=== PATIENT | female | born 1980 | race Caucasian/White ===

== ENCOUNTER 2022-06-24 11:26 | Emergency (ER) | payer MEDICAID, SELFPAY ==
--- NOTE | ~2022-06-24 | XR_ITS ---
EXAMINATION: XR CHEST CLINICAL INFORMATION: Cough, fever and wheezing. Rule out pneumonia. COMPARISON: None TECHNIQUE: 2 views of the chest were obtained. FINDINGS: No significant abnormality is noted involving the heart, lungs, mediastinum, bony thorax or soft tissues. XR/XR chest 2V IMPRESSION: Unremarkable chest examination.
[2022-06-24 11:58] VITALS: BP 143/97; PULSE 113; RESP 19; TEMP 36.6; O2SAT 97; BMI 38.7
[2022-06-24 12:42] LABS: IDNOW Serial# 9DB6401D; Influenza A Positive (Negative); Influenza B2 Negative (Negative)
[2022-06-24 12:49] LABS: COVID-19 Test Negative (Negative)
--- NOTE | 2022-06-24 14:10 | ED_ITS ---
HPI - General Adult General Chief complaint: Upper Respiratory Symptoms Stated complaint: not feeling well Time Seen by Provider: 06/24/22 13:26 Source: patient Mode of arrival: ambulatory Limitations: no limitations History of Present Illness HPI narrative: 41-year-old female presents to ED for 4 days of headache, cough, and fever. She states herself, daughter, and son also having similar symptoms. Patient denies any shortness of breath, chest pain, leg swelling, calf pain, coughing up blood. Related Data Allergies Allergy/AdvReac Type Severity Reaction Status Date / Time aspirin [ASA] Allergy Unknown Verified 06/24/22 12:03 tramadol Allergy Itching Verified 06/24/22 12:03 Review of Systems Review of Systems: Coughing, fever, and headache Yes all other systems are reviewed and are negative [facility] Social History Social History Advance Directives: No Advance Directives Information Provided: No Physical Exam ED Vital Signs: Vital Signs - 24 hr 06/24/22 11:58 Temperature 98 F Pulse Rate 113 H Respiratory Rate 19 Blood Pressure 143/97 H Pulse Oximetry 97 Oxygen Delivery Method Room Air BMI result Body Mass Index 38.7 Const General: cooperative, healthy appearing, comfortable, no acute distress, well developed, alert and awake Orientation/consciousness: oriented to place, oriented to time and patient oriented x3 HENMT Head: Yes normal to inspection, Yes No palpable skull fracture present, Yes normocephalic, Yes atraumatic and No abrasion Eyes General: appearance normal, both eyes and all related structures Neck Neck: Yes normal visual inspection, Yes full ROM, Yes no lymphadenopathy, Yes no meningeal signs, Yes trachea midline, Yes supple, No anterior neck swelling and No tender Chest Chest palpation & inspection: normal inspection of the chest and normal palpation of entire chest wall Resp Effort & Inspection: normal respiratory effort and able to speak in complete sentences Auscultation: clear to auscultation bilaterally Cardio Jugular venous distension: no JVD Heart sounds: S1 normal heart sound present and S2 normal heart sound present GI Inspection: Yes normal to inspection and No abdominal wall ecchymosis Palpation (GI): Soft to palpation, not firm, nontender, no guarding and not rigid General: No CVA tenderness and Yes no CVA tenderness Back/Spine/Pelvis Back: no CVA tenderness, No CVA tenderness and No back tenderness Skin General skin exam: no rashes or lesions noted and elasticity normal Neuro General: oriented to place, oriented to time, patient oriented x3, gait normal and no meningeal signs Cranial nerves: Yes CN's II-XII intact bilaterally Extrem Other: Lower extremity negative for swelling, pitting edema, calf tenderness General: Yes normal to inspection and Yes full ROM Psych Appearance: grossly normal, well kempt and not disheveled Course Course Course Narrative: Chest x-ray COVID influenza ordered Reevaluation(s) Reevaluation #1: Chest x-ray normal. Patient positive for influenza Time: 14:13 Medical Decision Making [facility] Narrative Medical decision making narrative: SARs Lab Data Labs: Lab Results 06/24/22 06/24/22 Range/Units 12:06 12:06 COVID-19 (JAMIR) Negative (Negative) COVID-19 Clin Com See Note Influenza Type A (PAMELA) Positive A (Negative) Influenza Type B (PAMELA) Negative (Negative) Influenza A & B Note See Note Discharge Plan Discharge Clinical Impression: Influenza A Patient Disposition: Home, Self-Care Instructions: Influenza (ED) Additional Instructions: Antolin positivo para influenza A. Debido a que tuvo s?ntomas suhail m?s de 48 horas, no calific? para Tamiflu. Recomendar hidrataci?n oral, descanso, Tylenol/Motrin para el control de la fiebre/dolor. Regrese a la kem de urgencias de inmediato por cualquier dolor en el pecho, dificultad para respirar, tos con janelle, hinchaz?n de las piernas, debilidad, fiebre intratable, escalofr?os, cualquier otro s?ntoma preocupante. Por favor, juancho un seguimiento con el proveedor de atenci?n primaria. Stand Alone Forms: Work/School Release Interventions: ED Discharge Assessment Last Done: 06/24/22 15:14 Discharge Date/Time: 06/24/22 14:20 Print Language: Citizen Of [place]
--- NOTE | 2022-06-24 14:55 | ED.URI ---
HPI - URI/Sore Throat General Chief Complaint: Upper Respiratory Symptoms Stated Complaint: not feeling well Time Seen by Provider: 06/24/22 13:26 Source: patient Mode of arrival: ambulatory Limitations: no limitations Related Data Allergies Allergy/AdvReac Type Severity Reaction Status Date / Time aspirin [ASA] Allergy Unknown Verified 06/24/22 12:03 tramadol Allergy Itching Verified 06/24/22 12:03 [facility] Social History Social History Advance Directives: No Advance Directives Information Provided: No Physical Exam Vital Signs: Vital Signs: Last Vital Signs Temp 98 F 06/24/22 11:58 Pulse 113 H 06/24/22 11:58 Resp 19 06/24/22 11:58 BP 143/97 H 06/24/22 11:58 Pulse Ox 97 06/24/22 11:58 O2 Del Method 06/24/22 11:58 BMI result Body Mass Index 38.7 Course Course Course Narrative: RME: 41-year-old female who presented to emergency department for evaluation of fever, headache and cough x4 days. The patient states her cough is productive, she is also having chest pain and shortness of breath. Vital signs revealed an elevated blood pressure 149/70, elevated pulse of 113. Patient is awake alert does not appear to be in distress, lungs were clear to auscultation, breath sounds symmetric bilaterally, heart regular rate rhythm, abdomen soft nontender extremities unremarkable neurologic exam nonfocal. I did order a COVID-19, influenza, and chest x-ray MDM - URI/Sore Throat Lab Data Labs: Lab Results 06/24/22 06/24/22 Range/Units 12:06 12:06 COVID-19 (JAMIR) Negative (Negative) COVID-19 Clin Com See Note Influenza Type A (PAMELA) Positive A (Negative) Influenza Type B (PAMELA) Negative (Negative) Influenza A & B Note See Note Discharge Plan Discharge Clinical Impression: Influenza A Patient Disposition: Home, Self-Care Instructions: Influenza (ED) Additional Instructions: Antolin positivo para influenza A. Debido a que tuvo s?ntomas suhail m?s de 48 horas, no calific? para Tamiflu. Recomendar hidrataci?n oral, descanso, Tylenol/Motrin para el control de la fiebre/dolor. Regrese a la kem de urgencias de inmediato por cualquier dolor en el pecho, dificultad para respirar, tos con janelle, hinchaz?n de las piernas, debilidad, fiebre intratable, escalofr?os, cualquier otro s?ntoma preocupante. Por favor, juancho un seguimiento con el proveedor de atenci?n primaria. Stand Alone Forms: Work/School Release Print Language: [place]
== END 2022-06-24 14:20 | disposition home or self-care (01) ==
PROVIDERS: Emergency Medicine Emergency Medical Services; Emergency Provider Student in an Organized Health Care Education/Training Program
DX: J11.1 Influenza due to unidentified influenza virus with other respiratory manifestations (principal); Z20.822 Contact with and (suspected) exposure to COVID-19
CPT/HCPCS: 71046; 87502; 87635; 99283